=== PATIENT | female | born 1970 | race Caucasian/White ===

== ENCOUNTER 2016-09-09 14:37 | Emergency (ER) | payer SELFPAY ==
[2015-06-11 12:27] VITALS: BP 101/60
[~2016-09-09] VITALS: Ht 160 cm; Wt 56.7 kg
[~2016-09-09 14:37] MED LIST: CITA20TA5 PO; CITA20TA9 PO; CLON0.5T3 PO; CLON1TAB PO; DICL75TA PO; ESOM40CA PO; FERR-26 PO; GABA600T2 PO; MELO15TA23 PO; METO10TA81 PO; NAPR500T PO; OMEP40CA5 PO; OXYC-327 PO; OXYC10TA PO; OXYC1TAB7 PO
--- NOTE | 2016-09-09 15:32 | PHYS DOC ---
Past Medical History Past Medical History: Anxiety, Depression, GERD, Other Additional Past Medical Histor: ectopic Past Surgical History: Cholecystectomy, Hysterectomy, Tonsillectomy, Tubal ligation Additional Past Surgical Histo: L shoulder surgery Alcohol Use: Occasionally Drug Use: None Adult General Chief Complaint Chief Complaint: ABSCESS HPI HPI Patient is a 46 year old female with history of depression and anxiety who presents today complaining of sores on her head. Patient states they came from shingles infection. Patient states she has history of shingles. She states she is currently on oxycodone 20 mg that she just picked from the pharmacy. Patient denies fever. Patient states this sores are giving her a headache. PCP at [facility] Review of Systems Review of Systems Constitutional: Denies fever or chills [] Eyes: Denies change in visual acuity, redness, or eye pain [] Musculoskeletal: Denies back pain or joint pain [] Integument:sores on her head Neurologic: Denies headache, focal weakness or sensory changes [] Endocrine: Denies polyuria or polydipsia [] Allergies Allergies Allergies Coded Allergies Type Severity Reaction Last Updated Verified No Known Drug Allergies 12/24/14 No Physical Exam Physical Exam Constitutional: Well developed, well nourished, no acute distress, non-toxic appearance. [] HENT: Normocephalic, atraumatic, bilateral external ears normal, oropharynx moist, no oral exudates, nose normal. [] Eyes: PERRLA, EOMI, conjunctiva normal, no discharge. [] Skin: posterior occipital with are area of cellulitis approx. 2X2 cm with scabbing over the center of the area no drainage. Back: No tenderness, no CVA tenderness. [] Extremities: No tenderness, no cyanosis, no clubbing, ROM intact, no edema. [] Neurologic: Alert and oriented X 3, normal motor function, normal sensory function, no focal deficits noted. [] Psychologic: Affect normal, judgement normal, mood normal. [] Current Patient Data Vital Signs Vital Signs Date Time Temp Pulse Resp B/P (MAP) Pulse Ox O2 Delivery O2 Flow Rate FiO2 09/09/16 14:51 98.5 81 18 96 Room Air 98.5 EKG EKG [] Radiology/Procedures Radiology/Procedures [] Course & Med Decision Making Course & Med Decision Making Pertinent Labs and Imaging studies reviewed. (See chart for details) Patient has an area of cellulitis on her posterior scalp that she believes came from shingles infection. She does not have any shingles lesions. She is requesting medicine for pain as well as for shingles and infection. Informed patient I'll not give her anything for pain considering she has already filled her pain prescription of oxycodone today. She states she takes 20 mg of oxycodone for chronic back pain. Informed her I don't see any shingles lesions but i am okay sending her home with acyclovir as well as Bactrim for infection and she was given a tetanus shot in the ED. She was refusing antibiotics specially Bactrim stating it will give her yeast infection. Offered Diflucan or Clindamycin. She states she can not pay for it either. Offered her Fluconazole and she states she can not pay for it. I requested she follows up with her own PCP and use OTC yorgut to prevent yeast infections or use probiotics. Dragon Disclaimer Dragon Disclaimer This electronic medical record was generated, in whole or in part, using a voice recognition dictation system. Departure Departure Impression: Primary Impression: Cellulitis of head or scalp Disposition: 01 HOME, SELF-CARE Condition: STABLE Referrals: UNKNOWN PCP NAME (PCP) Follow-up with your doctor at [facility] as soon as possible Patient Instructions: Cellulitis Additional Instructions: You were seen for scalp infection. Complete your oral antibiotics. If you worried about getting a yeast infection, consider buying probiotics over-the- counter and taking them to prevent yeast infection. I did write you a prescription for Diflucan. It's for yeast infections. I gave you prescriptions for acyclovir. I do not see shingles lesions on your body but use the medications for shingles. Continue taking oxycodone at home. Scripts Acyclovir (ACYCLOVIR) 800 Mg Tablet 1 TAB PO 5XDAY, #50 TAB Prov: MUTUNGAKANWAL PERCUSSION INSTRUMENT REPAIRER 09/09/16 Fluconazole (DIFLUCAN) 150 Mg Tablet 1 TAB PO ONCE, #1 TAB 1 Refill Prov: MUTUNGA,KANWAL PERCUSSION INSTRUMENT REPAIRER 09/09/16 Sulfamethoxazole/Trimethoprim (BACTRIM DS TABLET) 1 Each Tablet 1 TAB PO BID, #20 TAB Prov: MUTUNGA,KANWAL PERCUSSION INSTRUMENT REPAIRER 09/09/16 KANWAL POMPA APRN Sep 09, 2016 15:32
[2016-09-09] MEDS ORDERED: DIPHTH,PERTUSS(ACELL),TET TOX 0.5 ML DISP.SYRIN. VAX IM ONE (15:45)
[2016-09-09] MEDS ORDERED: ACYC800T PO (15:48)
[2016-09-09] MEDS ORDERED: SULF1TAB24 PO (15:48)
[2016-09-09] MEDS ORDERED: FLUC150T PO (15:48)
== END 2016-09-09 15:57 | disposition home or self-care (01) ==
LOC: ER 14:37
DX: L03.811 Cellulitis of head [any part, except face] (principal); K21.9 Gastro-esophageal reflux disease without esophagitis; F41.9 Anxiety disorder, unspecified; F32.9 Major depressive disorder, single episode, unspecified
CPT/HCPCS: 90471; 90715; 99283-25

== ENCOUNTER → 2019-11-05 | Outpatient (CLI) | payer OTHER ==
[2016-09-09 14:51] VITALS: BP 126/67
[~2019-11-05] MED LIST changes: +ACYC800T PO; -CITA20TA5 PO; +CITA20TA6 PO; +CLON-77 PO; -CLON0.5T3 PO; -FERR-26 PO; +FERR325T14 PO; +FLUC150T PO; -GABA600T2 PO; +GABA600T7 PO; +NAPR-683 PO; -NAPR500T PO; +OMEP40CA45 PO; -OMEP40CA5 PO; -OXYC-327 PO; +OXYC1TAB19 PO; +SULF1TAB24 PO
--- NOTE | 2019-11-05 21:01 | RAD ---
Right ankle 2 views: Reason for examination: Right ankle pain. Prior broken right ankle one year ago. No acute fracture or dislocation is evident. There is some contour deformity at the distal tip of the fibular malleolus which may be posttraumatic The bone density is normal. No abnormal periosteal reaction is seen. Joint spaces are maintained. IMPRESSION: No acute bony abnormality at the right ankle. Lumbar spine 2 views: Reason for examination: Low back pain. Pedicle screws and goldy are present on the right at the L5-S1 level. The vertebral bodies of the lumbar spine are normally aligned anteriorly and posteriorly. No acute fracture or subluxation is seen. Posterior elements appear to be intact. No gross abnormality is seen at the sacrum or sacroiliac joints. IMPRESSION: Postop changes at the L5-S1 level on the right. No acute abnormality in the lumbar spine. Electronically signed by: Marguerite Madrigal MD (11/05/2019 8:58 PM) [facility]
== END | disposition home or self-care (01) ==
LOC: RAD 14:10
PROVIDERS: ATTEND Anesthesiology Pain Medicine
DX: M54.5 Low back pain (principal); M25.571 Pain in right ankle and joints of right foot; Z98.1 Arthrodesis status; Z96.661 Presence of right artificial ankle joint
CPT/HCPCS: 72100; 73600